=== PATIENT | male | born 1960 | race Caucasian/White ===

== ENCOUNTER → 2021-01-08 | Outpatient (REF) | payer BC | LOC: M LAB REF 19:15 | PROVIDERS: ATTEND Physician Assistant | DX: D49.519 Neoplasm of unspecified behavior of unspecified kidney (principal) ==

== ENCOUNTER → 2022-11-08 | Outpatient (REF) | payer BC | LOC: M SFHCCLAY 16:05 | PROVIDERS: ATTEND Family Medicine | DX: Z53.9 Procedure and treatment not carried out, unspecified reason (principal) ==

== ENCOUNTER → 2022-11-15 | Outpatient (CLI) | payer BC | LOC: M RAD 08:03 | PROVIDERS: ATTEND Family Medicine | DX: M54.16 Radiculopathy, lumbar region (principal) ==

== ENCOUNTER → 2024-02-27 | Outpatient (CLI) | payer MEDICARE | LOC: M PLAIMG 09:46 | PROVIDERS: ATTEND Family Medicine | DX: I34.0 Nonrheumatic mitral (valve) insufficiency (principal) ==